=== PATIENT | female | born 1995 | race Two or more races ===

== ENCOUNTER 2024-09-03 18:59 | Emergency (ER) | payer MEDICAID, OTHER ==
[~2024-09-03] VITALS: Ht 167.6 cm; Wt 102.0 kg
[2024-09-03 19:12] VITALS: BP 121/74; PULSE 98; RESP 18; TEMP 98.3; O2SAT 97
== END 2024-09-03 21:05 | disposition left against medical advice (07) ==
LOC: ER 18:59
DX: N93.9 Abnormal uterine and vaginal bleeding, unspecified (principal); Z53.21 Procedure and treatment not carried out due to patient leaving prior to being seen by health care provider